=== PATIENT | male | born 1965 | race Caucasian/White ===

== ENCOUNTER → 2016-04-20 | Day surgery (SDC) | payer OTHER ==
[~2016-04-20] MED LIST: BACITRACIN IM FOR SOLN 50,000 UNIT VIAL ONE; BUPIVACAINE HCL PF 0.75% 30 ML VIAL ONE; BUPIVACAINE LIPOSOME PF 1.3% 20 ML VIAL ONE; BUPIVACAINE/EPINEPHRINE 0.25% PF 30 ML VIAL ONE; LACTATED RINGER'S 1000 ML INJ 1,000 ML ONE; LIDOCAINE 1.5%/EPINEPHrine 1:200,000 PF SOLN 30 ML AMP ONE; LORT5TAB PO; MIDAZOLAM HCL 2 MG/2 ML VIAL ONE; ONDANSETRON HCL 4 MG/2 ML VIAL IV PUSH ONE; PROPOFOL 200 MG/20 ML AMP IV ONE; SODIUM CHLORIDE 0.9% INJ 10 ML ONE; Z.0.NO CURRENT MEDS; ceFAZolin INJ 1,000 MG VIAL ONE
--- NOTE | 2016-04-20 12:00 | TN ---
cc: JAM JJ M.D. DATE OF SURGERY 04/20/2016 PREOPERATIVE DIAGNOSES 1. Left shoulder rotator cuff tear. 2. 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 POSTOPERATIVE DIAGNOSES 1. Left shoulder rotator cuff tear involving the supraspinatus which was full-thickness with extended into the infraspinatus. 2. 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 PROCEDURE PERFORMED 1. Left shoulder open rotator cuff repair including acromioplasty. 2. Left shoulder open partial distal clavicle excision; 11 mm. SURGEON MD Parviz ANESTHESIA General via laryngeal mask augmented by local infiltration. Please note that the interscalene block was not done by Anesthesia due to the patient having COPD with moderate risk due to him not being able to maintain his sats above 95% consistently on room air. IMPLANTS UTILIZED One Arthrex 5.5 mm Bio-Corkscrew anchor with four #2 FiberWire sutures. One Arthrex 4.5-mm Bio-PushLock. INDICATIONS FOR PROCEDURE Mr. Wheeler is a 51-year-old gentleman who has had a known left shoulder rotator cuff tear as result of an injury at work from December of 2014. He had been treated conservatively for over a year and due to his persistent pain, weakness and failure to fully recover, he is being taken to the operating room for surgical repair. He was aware of the risks, benefits, potential complications of the procedure and full written informed consent was obtained. 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 DESCRIPTION OF PROCEDURE After the patient was appropriately identified in the holding area, he had correctly marked his left shoulder for surgery and I had initialed it as well. He was then given 1 gram of intravenous Ancef as prophylactic antibiotic and he was taken to the operating suite where he was placed under general laryngeal mask anesthetic by Dr. Jamil and then he was placed into a beach-chair position. Once he was fully positioned, he was comfortably padded so that there were no bony prominences that were having excessive pressure on it and he was then prepped with alcohol and Hibiclens and draped in the normal standard fashion including use of impervious stockinette from the hand all the way up to the mid-humerus. Standard anterolateral approach was made over the edge of the shoulder, centering over the acromioclavicular joint. The subcutaneous tissue was divided and hemostasis was achieved with electrocautery. The overall incision was approximately 5 cm in length. I went ahead and elevated a full thickness periosteal sleeve over the acromioclavicular joint and then began to dissect both medially and laterally exposing the anterolateral edge of the acromion and to the distal 2cm of clavicle. 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 I went ahead and released the deltoid for approximately 1 cm in line with its fibers and then as soon as the deep deltoid fascia was divided a gutierres of joint fluid came through consistent with there being a full-thickness rotator cuff tear. The undersurface of the acromion was quite thickened and caused high-grade impingement even with gentle traction on the arm and therefore a generous acromioplasty was performed with the use of an oscillating saw. It was at this time that I also elected to perform partial distal clavicle excision both due to the arthritis between the clavicle and the acromion but also related to the fact that he had subclavicular osteophytes that also impinged on the deep surface of the subacromial space as well. Once the distal 10-12 mm of clavicle was excised, there was no longer any [id number] contact between the two surfaces but laso good decompression of the subclavicular space. At this time attention was now directed to the rotator cuff. The subacromial space was then thoroughly decompressed at this point in time. Bursectomy was then performed both sharply and bluntly and I was able to get good exposure of the cuff at this time. There was evidence of a full-thickness tear of the supraspinatus with retraction of only approximately 1 cm and there was slight extension into the upper subscapularis and posteriorly into the infraspinatus. I passed #2 FiberWire sutures through the tear getting good purchase in all three tendons. Once they were placed, I went ahead and tied them sequentiallyand the medial row came together well without tension. I felt that further reinforcement with the lateral row was appropriate and I went ahead and prepared to place a 4.5-mm Bio-PushLock with all four suture tails just lateral to the greater tuberosity. The cuff tear was quite well repaired at this time and the cuff moved normally as the shoulder was taken through a full range of motion. There was no evidence of any puckering or any laxity. The deep tissues were thoroughly irrigated with antibiotic-containing saline. The periosteal tissue over the AC joint was allowed to reapproximate and was closed with some of the #2 FiberWire suture, including repairing the proximal deltoid. It was further augmented with #2 Ticron suture as well. Care was taken to place all knots on the deep surface to avoid any issues with palpable sutures post op. At this time, the subcutaneous layer as irrigated and then closed with 2-0 Vicryl sutures and the the skin was then closed with navid. I went ahead and injected 20 cc of 0.25% Marcaine with epinephrine into the subcutaneous plane and then I went ahead and injected 20 cc of 0.25% Exparel in the deep layers and also spread it in the superficial tissues as well for more prolonged pain relief because he was unable have a block. At this time the wound was dressed with Xeroform, 4x4s, ABD and foam tape. He was placed into a sling. He was awoken from anesthesia was taken to Recovery in stable condition. Appropriate postoperative orders have been written. Jam Jj MD Electronically Signed Jam Jj MD SIS/SSB /11:16 AM /11:35 AM KAREN
== END | disposition home or self-care (01) ==
LOC: ESDC 07:05
PROVIDERS: ATTEND Orthopaedic Surgery Sports Medicine
DX: M75.122 Complete rotator cuff tear or rupture of left shoulder, not specified as traumatic (principal); M19.012 Primary osteoarthritis, left shoulder; M75.42 Impingement syndrome of left shoulder
CPT/HCPCS: 00450; 01630; 23120; 23420; C1713; C9290; J0690; J2250; J2405; J3010; J7120